=== PATIENT | female | born 1980 | race Caucasian/White ===

== ENCOUNTER 2017-11-29 22:37 | Emergency (ER) | payer OTHER ==
[~2017-11-29] VITALS: Ht 170.2 cm; Wt 101.7 kg
[2017-11-29 22:42] VITALS: Ht 170.2 cm; Wt 101.7 kg
[2017-11-29 23:40] LABS: BASOPHIL % 0.4 % (0-2); PLATELET COUNT 290 x10^3mcL (130-400); RED CELL DISTRIBUTION WIDTH 12.7 % (11.5-14.5)
[2017-11-29 23:49] LABS: CALCIUM 8.4 mg/dL (8.5-10.1); CARBON DIOXIDE 27.4 mmol/L (21-32); CHLORIDE SERUM 105 mmol/L (98-107); CREATININE SERUM 0.8 mg/dL (0.6-1.0); GFR1 > 60 mL/min; GLUCOSE SERUM 95 mg/dL (74-106); POTASSIUM SERUM 3.8 mmol/L (3.5-5.1); SODIUM SERUM 141 mmol/L (136-145)
[2017-11-29 23:54] LABS: ALBUMIN 3.6 g/dL (3.4-5.0); ALKALINE PHOSPHATASE 95 U/L (46-116); ALT/SGPT 21 U/L (14-59); AST/SGOT 13 U/L (15-37); BILIRUBIN TOTAL 0.6 mg/dL (0.20-1.00); TOTAL PROTEIN, SERUM 8.1 g/dL (6.4-8.2)
[2017-11-30 01:02] VITALS: BP 126/79
== END 2017-11-30 01:02 | disposition home or self-care (01) ==
LOC: ED 22:37
PROVIDERS: Emergency Medicine
DX: G45.9 Transient cerebral ischemic attack, unspecified (principal)
CPT/HCPCS: 36415; J1885

== ENCOUNTER 2019-09-28 18:14 | Emergency (ER) | payer OTHER ==
[~2019-09-28] VITALS: Ht 172.7 cm; Wt 115.2 kg
[2019-09-28 18:29] VITALS: BP 162/109; Ht 172.7 cm; Wt 115.2 kg
== END 2019-09-28 19:17 | disposition home or self-care (01) ==
LOC: ED 18:14
DX: J03.90 Acute tonsillitis, unspecified (principal); R59.1 Generalized enlarged lymph nodes; G43.909 Migraine, unspecified, not intractable, without status migrainosus; J45.909 Unspecified asthma, uncomplicated; Z90.710 Acquired absence of both cervix and uterus
CPT/HCPCS: J1885